=== PATIENT | male | born 1970 | race Caucasian/White ===

== ENCOUNTER 2020-12-09 00:33 | Emergency (ER) | payer BC ==
[~2020-12-09 00:33] MED LIST: ASPIR 8181 MG PO; COZAAR100 MG PO; HYDROCHLOROTHIA25 MG PO; INDOMETHACIN50 MG PO; NAPROXEN250 MG PO; NORCO 7.5-3251 EACH PO; PROBIOTIC1 EAC1 PO; TOPROL XL25 MG PO; ZANTAC150 MG PO
[2020-12-09 01:59] LABS: HEMOGLOBIN 16.9 gm/dl (14.0-17.5); RED BLOOD COUNT 5.21 M/UL (4.20-5.50); WHITE BLOOD COUNT 11.2 K/UL (4.5-11.0)
[2020-12-09 02:15] LABS: BUN/CREATININE RATIO 16 (0-10)
== END 2020-12-09 03:50 | disposition home or self-care (01) ==
LOC: ER1 00:33
PROVIDERS: Physician Assistant
DX: K43.9 Ventral hernia without obstruction or gangrene (principal); K59.00 Constipation, unspecified; I10 Essential (primary) hypertension; Z90.49 Acquired absence of other specified parts of digestive tract
CPT/HCPCS: 80053; 81001; 85025; 96374; 96375; 99284; J1885; J2405; Q9967